=== PATIENT | female | born 1995 | race Caucasian/White ===

== ENCOUNTER 2020-08-03 11:16 | Day surgery (SDC) | payer OTHER ==
[2020-08-03 11:53] VITALS: BMI 33.3
[2020-08-03] MEDS ORDERED: hydrALAZINE 20 MG/ML VIAL SLOW IVP PRN (12:35)
== END 2020-08-03 14:20 | disposition home or self-care (01) ==
LOC: CSHLD/OP 11:16 → EDSTATUS 11:17 → CSHLD/OP 14:20
PROVIDERS: ATTEND Obstetrics & Gynecology
DX: O36.8120 Decreased fetal movements, second trimester, not applicable or unspecified (principal); O99.891 Other specified diseases and conditions complicating pregnancy; R10.32 Left lower quadrant pain; O47.02 False labor before 37 completed weeks of gestation, second trimester; Z3A.26 26 weeks gestation of pregnancy; Z79.899 Other long term (current) drug therapy
CPT/HCPCS: 76815; 76819; 99282

== ENCOUNTER 2022-07-13 10:09 | Inpatient (IN) | payer BC ==
[2022-07-13 11:39] VITALS: BMI 36.7
[2022-07-13] MEDS ORDERED: Famotidine/PF 20 mg/2ml Vial SLOW IVP PRN (11:46)
[2022-07-13] MEDS ORDERED: Promethazine HCl 25 MG/ML VIAL IM PRN ×2 (11:46→18:19)
[2022-07-13] MEDS ORDERED: Bicitra 30 ML UDCUP PO PRN (11:46)
[2022-07-13] MEDS ORDERED: hydrALAZINE 20 MG/ML VIAL SLOW IVP PRN (11:46)
[2022-07-13] MEDS ORDERED: CEFAZOLIN 2 GM in Sodium Chloride 0.9% 100 ML IVPB SCH (12:00)
[2022-07-13] MEDS ORDERED: NS w/ Oxytocin 30 units 500 ML IV SCH (12:00)
[2022-07-13 12:08] LABS: Hemoglobin 13.2 g/dL (12.0-15.5); Mean Corpuscular HGB CONC 33.4 g/dL (32.0-36.0); Mean Corpuscular Hemoglobin 29.4 pg (27.0-33.0); Mean Platelet Volume 11.3 fl (7.4-10.4); Platelet Count 245 10x3/uL (150-450); RBC Distribution Width 13.2 % (11.5-14.5); Red Blood Cell (RBC) Count 4.49 10x6/uL (3.90-5.03); White Blood Cell (WBC) Count 10.1 10x3/uL (3.5-10.5)
[2022-07-13 12:36] LABS: HBSAg Index 0.18 S/CO (0-0.99); Hep B Surf Ag - L&D Non-Reactive S/CO (NonReactive); Syphilis Antibody Nonreactive (Nonreactive); Syphilis Antibody Index 0.03 S/CO (<1.00 Non-Reactive)
[2022-07-13] MEDS: Lactated Ringer's 1,000 ML IV SCH ×2 (14:22→20:00)
[2022-07-13] MEDS: Ondansetron PF 4 MG/2 ML Vial IVP PRN ×2 (14:22→17:39)
[2022-07-13] MEDS ORDERED: Oxytocin 10 UNITS/ML VIAL ONE ×2 (15:14→16:56)
[2022-07-13] MEDS ORDERED: Phenylephrine 40 MG/NS 250 ML 250 ML ONE (15:14)
[2022-07-13] MEDS ORDERED: Morphine PF 10 MG/10 ML VIAL ONE (15:15)
[2022-07-13] MEDS ORDERED: Dexamethasone 4 mg/ml Vial ONE (15:15)
[2022-07-13] MEDS ORDERED: Fentanyl 100 MCG/2 ML VIAL ONE (15:15)
[2022-07-13] MEDS ORDERED: Ketorolac Tromethamine 30 MG/ML VIAL ONE (15:15)
[2022-07-13] MEDS ORDERED: Misoprostol 200 MCG TAB ONE (15:42)
[2022-07-13] MEDS ORDERED: Carboprost 250 MCG/ML AMP ONE (15:42)
[2022-07-13] MEDS ORDERED: Methylergonovine 0.2 MG/ML VIAL ONE (15:42)
[2022-07-13] MEDS ORDERED: Tranexamic Acid 1,000 MG/10 ML VIAL ONE (15:43)
[2022-07-13 16:50] LABS: pH (Cord, venous) 7.265 (7.250-7.350)
[2022-07-13] MEDS ORDERED: Acetaminophen 500 MG TAB PO PRN (17:03)
[2022-07-13] MEDS ORDERED: HYDROcodone/Acetaminophen 5/325 mg Tablet PO PRN ×2 (17:03)
[2022-07-13] MEDS ORDERED: Ibuprofen 800 MG TAB PO PRN (17:03)
[2022-07-13] MEDS ORDERED: Naloxone HCl 0.4 mg/ml Vial IVP PRN ×2 (18:19)
[2022-07-13] MEDS ORDERED: Naloxone HCl 0.4 mg/ml Vial IV PRN (18:19)
[2022-07-13] MEDS ORDERED: Moisturizing Cream (Eucerin) 113 GM JAR TOP PRN (18:19)
[2022-07-13] MEDS ORDERED: Fentanyl 100 MCG/2 ML VIAL SLOW IVP PRN (18:19)
[2022-07-13] MEDS ORDERED: Meperidine HCl/PF 25 MG/ML VIAL SLOW IVP PRN (18:19)
[2022-07-13] MEDS ORDERED: Promethazine HCl 25 MG SUPP PR PRN (18:19)
[2022-07-13] MEDS ORDERED: Ondansetron PF 4 MG/2 ML Vial IVP PRN (18:19)
[2022-07-13] MEDS ORDERED: Ondansetron HCl/PF 4 MG/2 ML Vial IVP PRN (18:19)
[2022-07-13] MEDS ORDERED: HYDROmorphone 2 MG/ML VIAL SLOW IVP PRN (18:19)
[2022-07-13] MEDS ORDERED: diphenhydrAMINE 50 MG/ML VIAL IVP PRN (18:19)
[2022-07-13] MEDS ORDERED: Communication Order-Pharmacy FS SCH (18:30)
[2022-07-13] MEDS ORDERED: Ketorolac Tromethamine 30 MG/ML VIAL IVP SCH (18:30)
[2022-07-13] MEDS ORDERED: Misoprostol 200 MCG TAB PR SCH (19:00)
[2022-07-13] MEDS: Ketorolac Tromethamine 30 MG/ML VIAL IVP PRN (19:07)
[2022-07-13] MEDS ORDERED: Promethazine HCl 25 MG/ML VIAL ONE ×3 (20:49→20:50)
[2022-07-13] MEDS ORDERED: Simethicone Chewable 80 MG TAB PO PRN (21:43)
[2022-07-13] MEDS ORDERED: Methylergonovine 0.2 MG/ML VIAL IM PRN (21:43)
[2022-07-13] MEDS ORDERED: Misoprostol 200 MCG TAB PR PRN (21:43)
[2022-07-13] MEDS ORDERED: Boostrix 0.5 ML (Tdap) VIAL (>/=7 yrs of age) IM ONE (21:43)
[2022-07-13] MEDS ORDERED: Docusate 100 MG CAP PO SCH (22:00)
[2022-07-14] MEDS: Ketorolac Tromethamine 30 MG/ML VIAL IVP PRN ×3 (01:00→14:09)
[2022-07-14 04:09] LABS: Hemoglobin 10.8 g/dL (12.0-15.5); Mean Corpuscular HGB CONC 32.9 g/dL (32.0-36.0); Mean Corpuscular Hemoglobin 29.3 pg (27.0-33.0); Mean Corpuscular Volume 88.9 fl (81.6-98.3); Mean Platelet Volume 10.8 fl (7.4-10.4); Platelet Count 201 10x3/uL (150-450); RBC Distribution Width 12.9 % (11.5-14.5); Red Blood Cell (RBC) Count 3.69 10x6/uL (3.90-5.03); White Blood Cell (WBC) Count 20.8 10x3/uL (3.5-10.5)
[2022-07-14] MEDS: Lactated Ringer's 1,000 ML IV SCH ×3 (06:28→20:53)
[2022-07-14] MEDS ORDERED: HYDROcodone/Acetaminophen 5/325 mg Tablet PO PRN ×2 (06:30)
[2022-07-14] MEDS: Docusate 100 MG CAP PO SCH ×2 (08:20→20:21)
[2022-07-14] MEDS: Polyethylene Glycol 3350 17 GM Packet PO SCH (08:20)
[2022-07-14] MEDS: Prenatal Vitamin 1 TAB PO SCH (08:20)
[2022-07-14] MEDS: Ibuprofen 800 MG TAB PO SCH (20:21)
[2022-07-15] MEDS ORDERED: Ibuprofen 800 MG TAB PO PRN (00:01)
[2022-07-15] MEDS: Acetaminophen 325 MG TAB PO PRN ×2 (00:14→08:19)
[2022-07-15] MEDS: Ibuprofen 800 MG TAB PO SCH (03:11)
[2022-07-15] MEDS: Lactated Ringer's 1,000 ML IV SCH (05:24)
[2022-07-15] MEDS: Prenatal Vitamin 1 TAB PO SCH (08:14)
[2022-07-15] MEDS: Docusate 100 MG CAP PO SCH (08:14)
[2022-07-15] MEDS: Polyethylene Glycol 3350 17 GM Packet PO SCH (08:16)
[2022-07-15 11:21] VITALS: BP 133/96; TEMP 97.6
== END 2022-07-15 13:25 | disposition home or self-care (01) | DRG 787 ==
LOC: CSHLD 10:09 → CSHPP 21:15
PROVIDERS: ADMIT Obstetrics & Gynecology; ATTEND Obstetrics & Gynecology
PROC: 10D00Z1 Extraction of Products of Conception, Low, Open Approach (ICD-10-PCS; principal; 2022-07-13)
PROC: 4A033R1 Measurement of Arterial Saturation, Peripheral, Percutaneous Approach (ICD-10-PCS; 2022-07-13)
DX: O36.5930 Maternal care for other known or suspected poor fetal growth, third trimester, not applicable or unspecified (principal); O41.03X0 Oligohydramnios, third trimester, not applicable or unspecified; O42.013 Preterm premature rupture of membranes, onset of labor within 24 hours of rupture, third trimester; O34.211 Maternal care for low transverse scar from previous cesarean delivery; Z3A.36 36 weeks gestation of pregnancy; Z37.0 Single live birth; Z91.040 Latex allergy status; O77.0 Labor and delivery complicated by meconium in amniotic fluid
CPT/HCPCS: 36415; 51702; 82805; 85027; 86780; 86850; 86900; 86901; 87340; 88307; J1100; J1200; J1885; J2274; J2405; J2550; J2590; J3010; J3490; J7120; S0028

== ENCOUNTER 2025-04-04 16:04 | Inpatient (IN) | payer BC ==
[2025-04-04 16:46] VITALS: BMI 36.7
[2025-04-04] MEDS ORDERED: Tranexamic Acid 1,000 MG/10 ML VIAL IVP PRN (17:48)
[2025-04-04] MEDS ORDERED: Methylergonovine 0.2 MG/ML VIAL IM PRN ×2 (17:48→19:01)
[2025-04-04] MEDS ORDERED: hydrALAZINE 20 MG/ML VIAL SLOW IVP PRN ×2 (17:48→19:01)
[2025-04-04] MEDS ORDERED: Bicitra 30 ML UDCUP PO PRN (17:48)
[2025-04-04] MEDS ORDERED: Famotidine/PF 20 mg/2ml Vial SLOW IVP PRN (17:48)
[2025-04-04] MEDS ORDERED: Ondansetron PF 4 MG/2 ML Vial IVP PRN ×2 (17:48→18:35)
[2025-04-04] MEDS ORDERED: Diphenoxylate HCl/Atropine Tablet PO PRN (17:48)
[2025-04-04] MEDS ORDERED: Carboprost 250 MCG/ML AMP IM PRN (17:48)
[2025-04-04] MEDS ORDERED: Oxytocin 30 units/NS 500 ML 500 ML IV SCH ×2 (18:00→19:15)
[2025-04-04 18:04] LABS: Hematocrit 39.5 % (34.9-44.5); Hemoglobin 13.1 g/dL (12.0-15.5); Mean Corpuscular Hemoglobin 29.2 pg (27.0-33.0); Mean Corpuscular Volume 88.0 fL (81.6-98.3); Platelet Count 240 10x3/uL (150-450); Red Blood Cell (RBC) Count 4.49 10x6/uL (3.90-5.03); White Blood Cell (WBC) Count 11.68 10x3/uL (3.5-10.5)
[2025-04-04] MEDS ORDERED: Meperidine HCl/PF 25 MG (1 mL) VIAL SLOW IVP PRN (18:35)
[2025-04-04] MEDS ORDERED: diphenhydrAMINE 50 MG/ML VIAL IVP PRN (18:36)
[2025-04-04 18:40] LABS: Analyzer IN Cardio CS NICU; RapidComm Collect By RN; pH (Cord, venous) 7.454 (7.250-7.350)
[2025-04-04 18:43] LABS: Analyzer IN Cardio CS NICU; RapidComm Collect By RN
[2025-04-04] MEDS ORDERED: Ketorolac Tromethamine 30 MG (1 mL) VIAL IVP SCH (18:45)
[2025-04-04] MEDS ORDERED: Communication Order-Pharmacy FS SCH (18:45)
[2025-04-04] MEDS ORDERED: Bisacodyl 10 MG SUPP PR PRN (19:01)
[2025-04-04] MEDS ORDERED: Methylergonovine 0.2 MG TAB PO PRN (19:01)
[2025-04-04] MEDS ORDERED: Lanolin Ointment 7 GM TUBE TOP PRN (19:01)
[2025-04-04 19:16] LABS: Syphilis Antibody Index 0.05 S/CO (<1.00 Non-Reactive)
[2025-04-04 19:28] LABS: Hep B Surf Ag - L&D Non-Reactive S/CO (NonReactive)
[2025-04-04] MEDS: CEFAZOLIN 2 GM VIAL ONE (22:26)
[2025-04-04] MEDS: Oxytocin 10 UNITS/ML VIAL ONE (22:27)
[2025-04-04] MEDS: PHENYLEPHRINE-NS 100 MCG/ML 10 ML SYRINGE ONE ×2 (22:27→22:28)
[2025-04-04] MEDS: Ketorolac Tromethamine 30 MG (1 mL) VIAL ONE (22:33)
[2025-04-04] MEDS: Ferrous Sulfate 325 MG TAB PO SCH (22:33)
[2025-04-04] MEDS: diphenhydrAMINE 25 MG CAP PO PRN (22:43)
[2025-04-05] MEDS: Ondansetron PF 4 MG/2 ML Vial IVP PRN (00:28)
[2025-04-05] MEDS: Ketorolac Tromethamine 30 MG (1 mL) VIAL IVP PRN (00:32)
[2025-04-05 03:42] LABS: #Basophils 0.04 10x3/uL (0.0-0.2); #Eosinophils 0.05 10x3/uL (0.0-0.5); #Monocytes 0.59 10x3/uL (0.0-1.1); #Neutrophils 11.33 10x3/uL (1.5-8.4); %Basophils 0.3 % (0.0-2.0); %Eosinophils 0.3 % (0.0-6.0); %Lymphocytes 17.8 % (18.0-47.0); %Monocytes 4.0 % (0.0-10.0); %Neutrophils 77.1 % (40.0-75.0); Hematocrit 33.0 % (34.9-44.5); Hemoglobin 11.0 g/dL (12.0-15.5); Mean Corpuscular Hemoglobin 29.6 pg (27.0-33.0); Mean Corpuscular Volume 88.7 fL (81.6-98.3); Platelet Count 188 10x3/uL (150-450); Red Blood Cell (RBC) Count 3.72 10x6/uL (3.90-5.03); White Blood Cell (WBC) Count 14.69 10x3/uL (3.5-10.5)
[2025-04-05] MEDS: Metoclopramide HCl 10 MG (2 mL) VIAL IVP SCH (06:13)
[2025-04-05] MEDS ORDERED: HYDROcodone/Acetaminophen 5/325 mg Tablet PO PRN (06:45)
[2025-04-05] MEDS: Ibuprofen 800 MG TAB PO SCH (21:41)
[2025-04-05] MEDS: Simethicone Chewable 80 MG TAB PO PRN (21:49)
[2025-04-06] MEDS: Ondansetron PF 4 MG/2 ML Vial ONE (07:32)
[2025-04-06 08:15] VITALS: BP 90/54; TEMP 97.8
== END 2025-04-06 11:45 | disposition home or self-care (01) | DRG 785 ==
LOC: CSHLD/OP 16:04 → CSHLD 18:30 → CSHPED 21:25
PROVIDERS: ADMIT Obstetrics & Gynecology; ATTEND Obstetrics & Gynecology
PROC: 10D00Z1 Extraction of Products of Conception, Low, Open Approach (ICD-10-PCS; principal; 2025-04-04)
PROC: 0UB70ZZ Excision of Bilateral Fallopian Tubes, Open Approach (ICD-10-PCS; 2025-04-04)
DX: O34.211 Maternal care for low transverse scar from previous cesarean delivery (principal); Z3A.37 37 weeks gestation of pregnancy; Z37.0 Single live birth; O99.824 Streptococcus B carrier state complicating childbirth; O76 Abnormality in fetal heart rate and rhythm complicating labor and delivery
CPT/HCPCS: 36415; 51702; 82805; 85025; 85027; 86780; 86850; 86900; 86901; 87340; 88302; 99285; J1885; J2274; J2405; J2550; J2590; J2765